=== PATIENT | female | born 1945 | race Caucasian/White ===

== ENCOUNTER 2018-05-12 05:24 | Observation (INO) | payer OTHER ==
--- NOTE | 2018-05-12 05:38 | PDOC ---
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 States that she felt as if she was going to pass out and felt generally weak. She did not fall or hit her head. The only concomitant symptom was nausea. Denies vomiting, fevers, chills, chest pain, SOB, visual symptoms, headache, or other symptoms. 05/12/18 05:39 Past History - Past Medical History Allergies/Adverse Reactions: Allergies Allergy/AdvReac Type Severity Reaction Status Date / Time No Known Allergies Allergy Verified 05/12/18 05:59 Home Medications: Ambulatory Orders Alendronate Sodium [Binosto] 70 mg PO MO 11/24/17 Amlodipine Besylate 2.5 mg PO DAILY 11/24/17 Aspirin 81 mg PO DAILY 11/24/17 Atorvastatin Ca [Lipitor] 40 mg PO HS 11/24/17 Clopidogrel Bisulfate [Plavix -] 75 mg PO DAILY 11/24/17 Lisinopril [Prinivil] 20 mg PO DAILY 11/24/17 Metoprolol Succinate [Toprol Xl -] 25 mg PO DAILY 11/24/17 Pantoprazole Sodium [Protonix -] 40 mg PO DAILY 11/24/17 Ranolazine [Ranexa -] 500 mg PO BID 11/24/17 COPD: No Dementia: Yes (early) GI Disorders: Yes (gerd) HTN: Yes Hypercholesterolemia: Yes - Surgical History Cardiac Surgery: Yes (cabg @ 2003) - Suicide/Smoking/Psychosocial Hx Smoking History: Unknown if ever smoked Review of Systems - Review of Systems Constitutional: No: Chills, Diaphoresis, Fever, Loss of Appetite HEENTM: No: Blurred Vision, Tearing Respiratory: No: Cough, Orthopnea, Shortness of Breath Cardiac (ROS): Yes: Lightheadedness, Palpitations. No: Chest Pain, Irregular Heart Rate ABD/GI: No: Diarrhea, Nausea, Vomiting : No: Dysuria, Discharge, Frequency Musculoskeletal: No: Gout, Joint Pain, Muscle Weakness Integumentary: No: Lesions, Lumps, Pallor, Pruritus Neurological: No: Headache, Numbness Psychiatric: No: Anxiety, Depression Hematologic/Lymphatic: No: Anemia, Blood Clots, Easy Bleeding *Physical Exam - Physical Exam General Appearance: Yes: Nourished, Appropriately Dressed. No: Apparent Distress HEENT: positive: EOMI, EV, Normal ENT Inspection, Normal Voice Neck: positive: Trachea midline, Normal Thyroid, Supple. negative: Tender, Rigid Respiratory/Chest: positive: Lungs Clear, Normal Breath Sounds. negative: Chest Tender, Respiratory Distress, Accessory Muscle Use Cardiovascular: positive: Regular Rhythm, Regular Rate Gastrointestinal/Abdominal: positive: Normal Bowel Sounds, Flat, Soft. negative : Tender Lymphatic: negative: Adenopathy, Tenderness Musculoskeletal: positive: Normal Inspection. negative: Decreased Range of Motion Extremity: positive: Normal Capillary Refill, Normal Inspection, Normal Range of Motion. negative: Tender Integumentary: positive: Normal Color, Dry, Warm Neurologic: positive: Fully Oriented, Alert, Normal Mood/Affect, Normal Response , Motor Strength /5 ED Treatment Course - LABORATORY CBC & Chemistry Diagram: 05/12/18 07:45 05/12/18 07:45 Medical Decision Making - Medical Decision Making 72 year old female with CAD presenting with one episode of weakness and pre- syncope after getting up to go to the bathroom. She did not actually use the bathroom. Denies any syncope or chest pain. Will work up the patient with cbc, cmp, troponin, cxr, and ekg. Signed out to Dr. Montgomery pending workup results. 05/12/18 06:33 *DC/Admit/Observation/Transfer Diagnosis at time of Disposition: Pre-syncope, Lightheaded Chest pain Qualifiers: Chest pain type: other chest pain Qualified Code(s): R07.89 - Other chest pain - Discharge Dispostion Disposition: HOME Condition at time of disposition: Fair Decision to Admit order: No - Referrals - Patient Instructions - Post Discharge Activity
--- NOTE | 2018-05-12 06:08 | PDOC ---
Attending Attestation - HPI HPI: 05/12/18 06:22 The patient is a 72 year old female, with a significant past medical history of triple CABG , HTN and prediabetes, who presents to the emergency department s/p episode of near syncope with associated nausea and abdominal pain. She denies any recent room-spinning sensations. Allergies: NKDA Past surgical history: CABG Social history: Nonsmoker. Denies EtOH use and recreational drug use. Primary Care Physician: Dr. Emilee Dover ([phone]) - Physicial Exam PE: 05/12/18 06:22 Agree with resident exam. <Sheela Castro - Last Filed: 05/12/18 06:22> - Resident Resident Name: Cuong Diaz - ED Attending Attestation I have performed the following: I have examined & evaluated the patient, The case was reviewed & discussed with the resident, I agree w/resident's findings & plan - Medical Decision Making 05/12/18 19:44 72-year-old female with near syncopal episode case signed out to oncoming shift for further evaluation and final disposition Labs EKG and imaging pending <Vira Rivera - Last Filed: 05/12/18 19:47> Attestations - Attestations 05/12/18 06:22 Documentation prepared by Sheela Castro, acting as medical device sales consultant for Vira Rivera DO. <Sheela Castro - Last Filed: 05/12/18 06:22>
--- NOTE | 2018-05-12 07:56 | PDOC ---
*Physical Exam - Vital Signs Last Vital Signs Temp Pulse Resp BP Pulse Ox 97.8 F 55 L 17 126/75 96 05/12/18 05:24 05/12/18 05:24 05/12/18 05:24 05/12/18 05:24 05/12/18 05:24 Heart Score/ECG Review - History History: Slightly suspicious - Electrocardiogram EKG: Non specific repolarization disturbance - Age Age: >/= 65 - Risk Factors Risk Factors Heart Score: Yes Hx Hypercholesterolemia, Yes Hx Hypertension, Yes Hx Diabetes Based on the list above the patient has:: >/=3 risk factors or Hx atherosclerotic disease - Troponin Troponin: </= normal limit - Score Heart Score - Total: 5 ED Treatment Course - LABORATORY CBC & Chemistry Diagram: 05/12/18 07:45 05/12/18 07:45 Medical Decision Making - Medical Decision Making 05/12/18 07:55 Sign out received at 7am 72 F with episode of lightheadedness while going to use the bathroom. Pt now asymptomatic. Exam benign. - Plan at sign out is to f/u labs and EKG - If work up unremarkable, pt may be DC'ed EKG shows NSR, no NYASIA/STDs, TWI in lateral leads seen on prior EKG, no new ischemic changes. Rate 53 05/12/18 09:39 Labs wnl trop negative Pt reassessed - states that her lightheadedness is now resolved. However, pt now states that she has L sided chest pain. Pt has HEART score 5-6 Will admit tele obs 05/12/18 09:[address] Edmonds *DC/Admit/Observation/Transfer Diagnosis at time of Disposition: Pre-syncope, Chest pain, Lightheaded - Discharge Dispostion Condition at time of disposition: Fair Decision to Admit order: Yes - Referrals Referrals: Emilee Dover MD [Primary Care Provider] - - Patient Instructions - Post Discharge Activity - Attestations Physician Attestion: 05/12/18 09:52 I, Dr. Jeffrey Montgomery MD, attest that this document has been prepared under my direction and personally reviewed by me in its entirety. I further attest, that it accurately reflects all work, treatment, procedures and medical decision -making performed by me.
[2018-05-12 08:21] LABS: BASO % 0.6 % (0-2.0); EOS % 1.1 % (0-4.5); HEMATOCRIT 36.4 % (32.4-45.2); HEMOGLOBIN 12.6 GM/dL (10.7-15.3); LYMPH % 24.2 % (8-40); MCH 29.5 pg (25.7-33.7); MCHC 34.5 g/dl (32.0-36.0); MEAN CELL VOLUME 85.5 fl (80-96); MONO % 6.3 % (3.8-10.2); NEUT % 67.8 % (42.8-82.8); PLATELET COUNT 225 K/MM3 (134-434); RBC 4.26 M/mm3 (3.60-5.2); RDW 14.4 % (11.6-15.6); WHITE BLOOD COUNT 6.8 K/mm3 (4.0-10.0)
[2018-05-12 08:22] LABS: INR 1.05 (0.83-1.09); PROTHROMBIN TIME (PATIENT) 12.4 SEC (9.7-13.0)
[2018-05-12 08:45] LABS: ALK PHOS 70 U/L (45-117); ANION GAP 6 MMOL/L (8-16); BILIRUBIN,TOTAL 0.6 mg/dL (0.2-1); BLOOD UREA NITROGEN 15 mg/dL (7-18); CALCIUM 9.2 mg/dL (8.5-10.1); CHLORIDE 101 mmol/L (98-107); CO2 32 mmol/L (21-32); CREATININE 0.8 mg/dL (0.55-1.3); GLUCOSE,RANDOM 113 mg/dL (74-106); POTASSIUM 4.2 mmol/L (3.5-5.1); SGOT/AST 19 U/L (15-37); SGPT/ALT 32 U/L (13-61); SODIUM 138 mmol/L (136-145); TOT PROT 7.6 g/dl (6.4-8.2)
[2018-05-12] MEDS: CLOPIDOGREL BISULFATE 75 MG TABLET (FP) PO SCH (12:00)
--- NOTE | 2018-05-12 13:17 | EKG ---
Test Reason : Blood Pressure : / mmHG Vent. Rate : 053 BPM Atrial Rate : 053 BPM P-R Int : 184 ms QRS Dur : 090 ms QT Int : 450 ms P-R-T Axes : 059 019 115 degrees QTc Int : 422 ms SINUS BRADYCARDIA ABNORMAL ECG WHEN COMPARED WITH ECG OF 24-NOV-2017 07:43, NO SIGNIFICANT CHANGE WAS FOUND Confirmed by TALYA MORRIS MD ([id number]) on 05/12/2018 1:17:07 PM Referred By: Confirmed By:TALYA MORRIS MD
--- NOTE | 2018-05-12 14:45 | CON.CARD ---
Consult Consult Specialty:: Cardiology Referred by:: Kerri Edmonds MD Reason for Consultation:: Near syncope, CAD s/p CABG - History of Present Illness Chief Complaint: Near syncope, chest pain History of Present Illness: 72 year old w/ history of triple CABG and stent 02/2018 , HTN, and pre-diabetes who presents with nausea and lightheadedness when she got up to use the bathroom today. States that she felt as if she was going to pass out, felt nauseous, chest and abd discomfort and weakness. She denies true syncope, palpitations, dyspnea, orthopnea, PND or LE edema. Allergies: NKDA Past surgical history: CABG Social history: Nonsmoker. Denies EtOH use and recreational drug use. Primary Care Physician: Dr. Emilee Dover ([phone]) Machine Repairer: Dr. Bates - History Source History Provided By: Patient, Medical Record Limitations to Obtaining History: Language Barrier - Alcohol/Substance Use Hx Alcohol Use: No - Smoking History Smoking history: Unknown if ever smoked Have you smoked in the past 12 months: No Home Medications - Allergies Allergies/Adverse Reactions: Allergies Allergy/AdvReac Type Severity Reaction Status Date / Time No Known Allergies Allergy Verified 05/12/18 05:59 - Home Medications Home Medications: Ambulatory Orders Alendronate Sodium [Binosto] 70 mg PO MO 11/24/17 Amlodipine Besylate 2.5 mg PO DAILY 11/24/17 Aspirin 81 mg PO DAILY 11/24/17 Atorvastatin Ca [Lipitor] 40 mg PO HS 11/24/17 Clopidogrel Bisulfate [Plavix -] 75 mg PO DAILY 11/24/17 Lisinopril [Prinivil] 20 mg PO DAILY 11/24/17 Metoprolol Succinate [Toprol Xl -] 25 mg PO DAILY 11/24/17 Pantoprazole Sodium [Protonix -] 40 mg PO DAILY 11/24/17 Ranolazine [Ranexa -] 500 mg PO BID 11/24/17 Review of Systems - Review of Systems Constitutional: reports: Weakness Cardiovascular: reports: Chest Pain Gastrointestinal: reports: Abdominal Pain, Nausea Neurological: reports: Dizziness, Weakness Vital Signs: Vital Signs Temperature 98.1 F 05/12/18 12:45 Pulse Rate 68 05/12/18 12:45 Respiratory Rate 18 05/12/18 12:45 Blood Pressure 134/78 05/12/18 12:45 O2 Sat by Pulse Oximetry (%) 100 05/12/18 10:34 Constitutional: Yes: No Distress, Calm Neck: Yes: Supple Respiratory: Yes: Regular, CTA Bilaterally Gastrointestinal: Yes: Normal Bowel Sounds, Soft Cardiovascular: Yes: Regular Rate and Rhythm JVD: No Carotid Bruit: No Heart Sounds: Yes: S1, S2 Murmur: Yes: Systolic Murmur, Grade 1 Edema: No - Other Data Labs, Other Data: CBC, BMP 05/12/18 07:45 05/12/18 07:45 INR, PTT INR 1.05 (0.83-1.09) 05/12/18 07:45 Troponin, BNP 05/12/18 07:45 Troponin I < 0.02 Troponin, BNP 05/12/18 07:45 Troponin I < 0.02 SB @ 53 lateral TWI seen previously Problem List - Problems (1) S/P CABG (coronary artery bypass graft) Code(s): Z95.1 - PRESENCE OF AORTOCORONARY BYPASS GRAFT (2) Hyperlipidemia Code(s): E78.5 - HYPERLIPIDEMIA, UNSPECIFIED Qualifiers: Hyperlipidemia type: pure hypercholesterolemia Qualified Code(s): E78.00 - Pure hypercholesterolemia, unspecified; E78.0 - Pure hypercholesterolemia (3) Hypertensive heart disease Code(s): I11.9 - HYPERTENSIVE HEART DISEASE WITHOUT HEART FAILURE Qualifiers: Heart failure presence: without heart failure Qualified Code(s): I11.9 - Hypertensive heart disease without heart failure (4) Chest pain Code(s): R07.9 - CHEST PAIN, UNSPECIFIED Qualifiers: Chest pain type: other chest pain Qualified Code(s): R07.89 - Other chest pain; R07.8 - Other chest pain (5) Pre-syncope Code(s): R55 - SYNCOPE AND COLLAPSE Assessment/Plan 1. Syncope - vasovagal with typical prodrome 2. Chest pain syndrome 3. CAD s/p CABG 4. Hypertension 5. Hyperlipidemia 6. Dementia P:1. Check orthostasis, ruling out for [place] 2. Called Dr. Bates to obtain office records 3. Continue ASA 81 qd, Norvasc 2.5 qd, Lipitor 40 qhs, Plavix 75 qd, lisinopril 20 qd, Toprol XL 25 qd, Ranexa 500 bid 4. Patient may be d/oly with f/u with Dr. Bates for further evaluation once ruled out for [place] 5. Thank you for consultative opportunity
[2018-05-12] MEDS: ASPIRIN 81 MG CHEWABLE TABLETS PO SCH (15:20)
[2018-05-12] MEDS: metoPROLOL SUCCINATE 25 MG TAB.SR.24H (FP) PO SCH (15:20)
[2018-05-12] MEDS ORDERED: ASPIRIN 81 MG CHEWABLE TABLETS ONE (15:34)
[2018-05-12] MEDS ORDERED: CLOPIDOGREL BISULFATE 75 MG TABLET (FP) ONE (15:34)
--- NOTE | 2018-05-12 17:47 | HP ---
Admitting History and Physical - Primary Care Physician PCP: Kerri Edmonds - Admission History of Present Illness: 72 year old w/ history of triple CABG and stent 02/2018 , HTN, and pre- diabetes who presents with nausea and lightheadedness when she got up to use the bathroom today. States that she felt as if she was going to pass out and felt generally weak. She did not fall or hit her head. The only concomitant symptom was nausea. Denies vomiting, fevers, chills, chest pain, SOB, visual symptoms, headache, or other symptoms. - Past Medical History Cardiovascular: Yes: HTN, Other (cabg) - Smoking History Smoking history: Unknown if ever smoked Have you smoked in the past 12 months: No - Alcohol/Substance Use Hx Alcohol Use: No Home Medications - Allergies Allergies/Adverse Reactions: Allergies Allergy/AdvReac Type Severity Reaction Status Date / Time No Known Allergies Allergy Verified 05/12/18 05:59 - Home Medications Home Medications: Ambulatory Orders Alendronate Sodium [Binosto] 70 mg PO MO 11/24/17 Amlodipine Besylate 2.5 mg PO DAILY 11/24/17 Aspirin 81 mg PO DAILY 11/24/17 Atorvastatin Ca [Lipitor] 40 mg PO HS 11/24/17 Clopidogrel Bisulfate [Plavix -] 75 mg PO DAILY 11/24/17 Lisinopril [Prinivil] 20 mg PO DAILY 11/24/17 Metoprolol Succinate [Toprol XL -] 25 mg PO DAILY 11/24/17 Pantoprazole Sodium [Protonix -] 40 mg PO DAILY 11/24/17 Ranolazine [Ranexa -] 500 mg PO BID 11/24/17 Physical Examination Vital Signs: Vital Signs Temperature 98.1 F 05/12/18 12:45 Pulse Rate 59 L 05/12/18 15:30 Respiratory Rate 16 05/12/18 15:30 Blood Pressure 114/71 05/12/18 15:30 O2 Sat by Pulse Oximetry (%) 99 05/12/18 15:30 Constitutional: Yes: No Distress HENT: Yes: Atraumatic Neck: Yes: Supple Cardiovascular: Yes: Regular Rate and Rhythm Respiratory: Yes: CTA Bilaterally Gastrointestinal: Yes: Normal Bowel Sounds Extremities: Yes: WNL Edema: No Peripheral Pulses WNL: Yes Neurological: Yes: Alert, Oriented Labs: CBC, BMP 05/12/18 07:45 05/12/18 07:45 Imaging - Results X-ray: Report Reviewed Problem List - Problems (1) Hyperlipidemia Assessment/Plan: on meds stable Code(s): E78.5 - HYPERLIPIDEMIA, UNSPECIFIED Qualifiers: Hyperlipidemia type: pure hypercholesterolemia Qualified Code(s): E78.00 - Pure hypercholesterolemia, unspecified; E78.0 - Pure hypercholesterolemia (2) Hypertensive heart disease Assessment/Plan: on meds monitor bp Code(s): I11.9 - HYPERTENSIVE HEART DISEASE WITHOUT HEART FAILURE Qualifiers: Heart failure presence: without heart failure Qualified Code(s): I11.9 - Hypertensive heart disease without heart failure (3) Lightheaded Code(s): R42 - DIZZINESS AND GIDDINESS (4) Pre-syncope Code(s): R55 - SYNCOPE AND COLLAPSE (5) S/P CABG (coronary artery bypass graft) Code(s): Z95.1 - PRESENCE OF AORTOCORONARY BYPASS GRAFT Assessment/Plan Laboratory Tests 05/12/18 05/12/18 05/12/18 07:45 07:45 07:45 WBC 6.8 RBC 4.26 Hgb 12.6 Hct 36.4 MCV 85.5 MCH 29.5 MCHC 34.5 RDW 14.4 Plt Count 225 MPV 9.0 Absolute Neuts (auto) 4.6 Neutrophils % 67.8 Lymphocytes % 24.2 Monocytes % 6.3 Eosinophils % 1.1 Basophils % 0.6 Nucleated RBC % 0 PT with INR 12.40 INR 1.05 Sodium 138 Potassium 4.2 Chloride 101 Carbon Dioxide 32 Anion Gap 6 L BUN 15 Creatinine 0.8 Creat Clearance w eGFR > 60 Random Glucose 113 H Calcium 9.2 Total Bilirubin 0.6 AST 19 ALT 32 Alkaline Phosphatase 70 Troponin I < 0.02 Total Protein 7.6 Albumin 4.0 Active Medications Generic Name Dose Route Start Last Admin Trade Name Freq PRN Reason Stop Dose Admin Aspirin 81 mg 05/12/18 15:15 05/12/18 15:20 Asa - PO 81 mg DAILY [facility] Administration Atorvastatin Calcium 40 mg 05/12/18 22:00 Lipitor - PO HS DENIS Clopidogrel Bisulfate 75 mg 05/12/18 15:15 05/12/18 12:00 Plavix - PO 75 mg DAILY [facility] Administration Lisinopril 5 mg 05/13/18 10:00 Prinivil PO DAILY [facility] Metoprolol Succinate 25 mg 05/12/18 15:15 05/12/18 15:20 Toprol Xl - PO 25 mg DAILY [facility] Administration Ranolazine 500 mg 05/12/18 22:00 Ranexa - PO BID DENIS
[2018-05-12] MEDS ORDERED: ATORVASTATIN CA 40 MG TABLET (FP) PO SCH (22:00)
[2018-05-12] MEDS: RANOLAZINE E.R. 500 MG TABLET (FP) PO SCH (22:46)
[2018-05-12 23:44] VITALS: BMI 24.1
[2018-05-13] MEDS ORDERED: LISINOPRIL 5 MG TABLET (FP) PO SCH (10:00)
--- NOTE | 2018-05-13 10:12 | PN ---
Progress Note, Physician Chief Complaint: Events noted Not in distress History of Present Illness: Patient was seen and examined. Awake and alert. chart was reviewed Denies chest pain, SOB or palpitations - Current Medication List Current Medications: Active Medications Aspirin (Asa -) 81 mg PO DAILY [facility] Last Admin: 05/12/18 15:20 Dose: 81 mg Atorvastatin Calcium (Lipitor -) 40 mg PO HS [facility] Last Admin: 05/12/18 22:49 Dose: 40 mg Clopidogrel Bisulfate (Plavix -) 75 mg PO DAILY [facility] Last Admin: 05/12/18 12:00 Dose: 75 mg Lisinopril (Prinivil) 5 mg PO DAILY [facility] Metoprolol Succinate (Toprol Xl -) 25 mg PO DAILY [facility] Last Admin: 05/12/18 15:20 Dose: 25 mg Ranolazine (Ranexa -) 500 mg PO BID [facility] Last Admin: 05/12/18 22:46 Dose: Not Given - Objective Vital Signs: Vital Signs Temperature 98.2 F 05/13/18 05:00 Pulse Rate 57 L 05/13/18 05:00 Respiratory Rate 18 05/13/18 05:00 Blood Pressure 127/59 L 05/13/18 05:00 O2 Sat by Pulse Oximetry (%) 99 05/13/18 05:00 Constitutional: Yes: Well Nourished Eyes: Yes: PERRL HENT: Yes: Atraumatic Neck: Yes: Supple Cardiovascular: Yes: Regular Rate and Rhythm, S1, S2 Respiratory: Yes: CTA Bilaterally Gastrointestinal: Yes: Normal Bowel Sounds, Soft. No: Tenderness Edema: No Additional Findings/Remarks: - Review of Systems Constitutional: denies: Chills, Fever Cardiovascular: denies: Chest Pain, Palpitations, Shortness of Breath Respiratory: denies: Cough, Hemoptysis, Orthopnea, PND, SOB, SOB on Exertion Gastrointestinal: denies: Abdominal Pain, Constipation, Diarrhea, Melena, Nausea , Rectal Bleeding, Vomiting Musculoskeletal: denies: Back Pain, Joint Pain Neurological: denies: Weakness. denies: Dizziness, Headache, Seizure, Syncope Labs: CBC, BMP 05/12/18 07:45 05/12/18 07:45 INR, PTT INR 1.05 (0.83-1.09) 05/12/18 07:45 Problem List - Problems (1) Chest pain Code(s): R07.9 - CHEST PAIN, UNSPECIFIED Qualifiers: Chest pain type: other chest pain Qualified Code(s): R07.89 - Other chest pain; R07.8 - Other chest pain (2) Hyperlipidemia Code(s): E78.5 - HYPERLIPIDEMIA, UNSPECIFIED Qualifiers: Hyperlipidemia type: pure hypercholesterolemia Qualified Code(s): E78.00 - Pure hypercholesterolemia, unspecified; E78.0 - Pure hypercholesterolemia (3) Hypertensive heart disease Code(s): I11.9 - HYPERTENSIVE HEART DISEASE WITHOUT HEART FAILURE Qualifiers: Heart failure presence: without heart failure Qualified Code(s): I11.9 - Hypertensive heart disease without heart failure (4) Pre-syncope Code(s): R55 - SYNCOPE AND COLLAPSE (5) S/P CABG (coronary artery bypass graft) Code(s): Z95.1 - PRESENCE OF AORTOCORONARY BYPASS GRAFT Assessment/Plan 1. Syncope - vasovagal 2. Chest pain syndrome currently stable 3. CAD s/p CABG, angina 4. Hypertension 5. Hypercholesterolemia 6. Dementia PLAN: 1. Check orthostasis, ruling out for [place]. Currently asymptomatic and clinically stable 2. Continue ASA 81 mg QD, Norvasc 2.5 mg QD, Lipitor 40 mg QHS, Plavix 75 mg QD , Lisinopril 20 mg QD, Toprol XL 25 mg QD and Ranexa 500 mg BID 3. Follow up with her chief legal officer as outpatient when discharged. Discharge planning cardiac standpoint Be Cooper MD
[2018-05-13] MEDS: metoPROLOL SUCCINATE 25 MG TAB.SR.24H (FP) PO SCH (10:30)
[2018-05-13] MEDS: ASPIRIN 81 MG CHEWABLE TABLETS PO SCH (10:30)
[2018-05-13] MEDS: RANOLAZINE E.R. 500 MG TABLET (FP) PO SCH (10:30)
[2018-05-13] MEDS: CLOPIDOGREL BISULFATE 75 MG TABLET (FP) PO SCH (10:30)
[2018-05-13 15:23] VITALS: BP 115/56; PULSE 51; TEMP 98.4
--- NOTE | 2018-05-13 15:39 | DS ---
Physical Examination Vital Signs: Vital Signs Temperature 98.4 F 05/13/18 14:10 Pulse Rate 51 L 05/13/18 14:10 Respiratory Rate 18 05/13/18 14:10 Blood Pressure 115/56 L 05/13/18 14:10 O2 Sat by Pulse Oximetry (%) 99 05/13/18 13:00 Constitutional: Yes: No Distress HENT: Yes: Atraumatic Neck: Yes: Supple Cardiovascular: Yes: Regular Rate and Rhythm Respiratory: Yes: CTA Bilaterally Gastrointestinal: Yes: Normal Bowel Sounds Extremities: Yes: WNL Edema: No Neurological: Yes: Alert, Oriented Labs: CBC, BMP 05/12/18 07:45 05/12/18 07:45 Discharge Summary Reason For Visit: CHEST PAIN Current Active Problems Chest pain (Acute) Hyperlipidemia (Acute) Hypertensive heart disease (Acute) Lightheaded (Acute) Pre-syncope (Acute) S/P CABG (coronary artery bypass graft) (Acute) Condition: Fair - Instructions Referrals: Emilee Dover MD [Primary Care Provider] - - Home Medications Comprehensive Discharge Medication List: Ambulatory Orders Alendronate Sodium [Binosto] 70 mg PO MO 11/24/17 Amlodipine Besylate 2.5 mg PO DAILY 11/24/17 Aspirin 81 mg PO DAILY 11/24/17 Atorvastatin Ca [Lipitor] 40 mg PO HS 11/24/17 Clopidogrel Bisulfate [Plavix -] 75 mg PO DAILY 11/24/17 Lisinopril [Prinivil] 20 mg PO DAILY 11/24/17 Metoprolol Succinate [Toprol XL -] 25 mg PO DAILY 11/24/17 Pantoprazole Sodium [Protonix -] 40 mg PO DAILY 11/24/17 Ranolazine [Ranexa -] 500 mg PO BID 11/24/17 [facility]
== END 2018-05-13 17:33 | disposition home or self-care (01) ==
LOC: JER 05:24 → JERBED 09:53 → J4W 22:23
PROVIDERS: ADMIT Internal Medicine; ATTEND Internal Medicine
DX: R55 Syncope and collapse (principal); R07.9 Chest pain, unspecified; R42 Dizziness and giddiness; E78.5 Hyperlipidemia, unspecified; R73.03 Prediabetes; F03.90 Unspecified dementia, unspecified severity, without behavioral disturbance, psychotic disturbance, mood disturbance, and anxiety; K21.9 Gastro-esophageal reflux disease without esophagitis; I11.9 Hypertensive heart disease without heart failure
CPT/HCPCS: 36415; 71045-TC-FY; 80053; 82550; 84484; 85025; 85610; 93005; 93010; 99285-25; G0378